=== PATIENT | female | born 1960 | race Caucasian/White ===

== ENCOUNTER → 2018-09-21 | Day surgery (SDC) | payer BC ==
[~2018-09-21] MED LIST: CALCIUM PO; FENTANYL CITRATE/PF 100MCG/2 ML INJ ONE; GLUCAGON FOR INJ 1 MG VIAL ONE; MIDAZOLAM HCL 2 MG/2 ML VIAL ONE; MULTIVITAMINS1 EAC7 PO; PROPOFOL IV EMULSION 10 MG/ML 50 ML VIAL ONE
--- OUTSIDE RECORDS SUMMARY | 2018-09-21 06:03 | XMS REPORT | Summary of Care ---
Author Author [facility] Organization [facility] Address Unknown Phone Unavailable Encounter HQ Encntr_alias(FIN) [id number] Date(s): 08/19/17 - 08/19/17 [facility] [address] [place] [address]- [phone] Discharge Disposition: Home or Self Care Attending Physician: Ashlie Everett MD Referring Physician: Ashlie Everett MD Vital Signs No data available for this section Problem List No data available for this section Allergies, Adverse Reactions, Alerts No data available for this section Medications No data available for this section Results No data available for this section Immunizations No data available for this section Procedures No data available for this section Social History No data available for this section Assessment and Plan No data available for this section
--- OUTSIDE RECORDS SUMMARY | 2018-09-21 06:03 | XMS REPORT | Continuity of Care Document ---
Author [facility] Organization [facility] [employer] Address Unknown Phone Unavailable Care Team Providers Care [facility] Attendant Name Role Phone [facility] Information [employer] Unavailable Unavailable Problems Problem Status Onset Date Classification Date Reported Comments Source ROUTINE Active 08/09/2017 [facility] NON- LAISON ON RIGHT FOOT Active 07/30/2015 [facility] S82.91XA Active 07/30/2015 [facility] Medications No Data Provided for This Section Allergies, Adverse Reactions, Alerts No Known Medication Allergies Immunizations No Data Provided for This Section Results No Data Provided for This Section Pathology Reports No Data Provided for This Section Diagnostic Reports Report Value Date Source Breast Mammo Scrn ALESSANDRA w bhavin incl CAD MA BILATERAL DIGITAL SCREENING MAMMOGRAM 3D/2D WITH CAD: 08/19/2017 CLINICAL: /Screen. Current study was evaluated with a Computer Aided Detection (CAD) system. COMPARISON:Comparison is made to exams dated: 11/04/2015 mammogram, 10/23/2014 mammogram, 07/12/2013 mammogram, 07/05/2012 mammogram, 04/15/2011 mammogram, and 09/23/2009 mammogram. TECHNIQUE: Digital Breast Tomosynthesis was performed and utilized for Interpretation. i[employer] Version 1.3 was utilized for computer aided detection. FINDINGS: There are scattered fibroglandular densities in both breasts. Benign appearing densities are noted in both breasts. There is a benign calcification in the right breast. No significant masses, calcifications, or other findings are seen in either breast. There has been no significant interval change. IMPRESSION: BENIGN RECOMMENDATION:There is no mammographic evidence of malignancy. A 1 year screening mammogram is recommended.(08/20/2018) This exam was interpreted at [id number] for [facility]. Tuyet mora/re:08/23/2017 07:58:21 Family Consumer Science Teacher(s): Polly Lerma, [facility] letter sent: BI-RADS 1/2 Mammogram BI-RADS: 2 Benign 08/19/2017 [facility] Foot wo contrast CT Study: CT scan of the right foot without contrast Clinical Indication: S82.91XA Unspecified fracture of right lower leg, initial encounter for closed fracture Comparison: None TECHNIQUE: Multiple axial CT images of the right foot were acquired without the administration of intravenous contrast. Multiplanar formatted images were performed. FVV=409 mGy-cm FINDINGS: Postoperative changes of arthrodesis and screw fixation across the 1st TMT articulation are seen, utilizing 2 fixation screws. There is severe joint space narrowing across the 1st TMT joint with partial osseous bridging. There are well-corticated 12 mm and 4 mm ossific fragments along the plantar base of the 1st metatarsal bone. No acute bony fracture, joint dislocation, or discrete osseous erosion is seen. The bones are diffusely demineralized. Os trigonum is incidentally noted. Moderate osteoarthrosis of the 1st MTP joint and metatarsosesamoid articulations is seen. Mild osteoarthrosis of the 2nd through 4th MTP joints are also noted. Mild edema along the dorsal soft tissues of the foot is seen. The musculature throughout the foot is normal in bulk. No extracapsular mass or hypodense fluid collection is seen. IMPRESSION: 1. Postoperative changes of arthrodesis and screw fixation across the 1st TMT joint with partial osseous fusion across the 1st TMT joint. 2. 12 mm and 4 mm well-corticated ossific fragments adjacent to the plantar base of the 1st metatarsal bone. 3. 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 SL: [id number] 08/06/2015 [facility] Consultation Notes No Data Provided for This Section Discharge Summaries No Data Provided for This Section History and Physicals No Data Provided for This Section Vital Signs No Data Provided for This Section Encounters Location Location Details Encounter Type Encounter Number Reason For Visit Attending Provider ADM Date DC Date Status Source [facility] Outpatient [id number] Lewis Pack 08/06/2015 08/07/[address] [facility] Outpatient [id number] Ashlie Everett 08/19/2017 08/20/2017 [facility] Procedures No Data Provided for This Section Assessment and Plan No Data Provided for This Section Plan of Care No Data Provided for This Section Social History Social History Date Source No data available for this section 08/20/2017 [facility] Family History No Data Provided for This Section Advance Directives No Data Provided for This Section Functional Status No Data Provided for This Section
--- OUTSIDE RECORDS SUMMARY | 2018-09-21 06:03 | XMS REPORT | Summary of Care ---
Author Author [facility] Organization [facility] Address Unknown Phone Unavailable Encounter HQ Encntr_alias(FIN) [id number] Date(s): 08/06/15 - 08/06/15 [facility] [address] [place] [address]- [phone] Discharge Disposition: Home Attending Physician: Lewis Pack DPM Referring Physician: Lewis Pack DPM Vital Signs No data available for this [...]
--- OUTSIDE RECORDS SUMMARY | 2018-09-21 06:03 | XMS REPORT | Summary of Care ---
Author Author [facility] Organization [facility] Address Unknown Phone Unavailable Encounter HQ Encntr_alias(FIN) [id number] Date(s): 08/01/15 - 08/01/15 [facility] [address] [place] [address]- Discharge Disposition: Home Attending Physician: Lewis Pack [...]
--- NOTE | 2018-09-21 07:15 | NUR ---
SPIRITUAL CARE - Pre-Surgery Assessment: Pt in bed. Pt's at bedside. Pt reported supportive attention from family and friends. Intervention: I provided pastoral presence, hospitality, and sympathetic listening. I acquainted pt with availability of asbestos siding mechanic while hospitalized. Outcome: Pt expressed appreciation for visit. No need for follow up indicated at this time. GEORGE Negronlain Spiritual Care Department O: [phone] Pager: [phone] ([phone] number calling from)
[2018-09-21 09:15] VITALS: BP 119/74
--- NOTE | 2018-09-21 10:54 | Operative Report ---
DATE OF PROCEDURE: 09/21/2018 SURGEON: Gregory Noble MD PROCEDURE: Colonoscopy and polypectomy. INDICATIONS FOR COLONOSCOPY: Surveillance colonoscopy, personal history of colon polyps. MEDICATIONS: The patient was done under MAC, please see anesthesiologist's note. PROCEDURE IN DETAIL: With the patient in left lateral decubitus position, the flexible fiberoptic Olympus colonoscope was inserted into the rectum with ease and advanced all the way to the cecum. A minute polyp was removed per the cold biopsy forceps from the cecum. Three minute polyps were removed from the ascending colon per the cold biopsy forceps. One polyp was hot biopsied in the transverse colon. One polyp was hot biopsied in the descending colon. Some diverticular disease was noted in the sigmoid colon. Two polyps were snared and one polyp was hot biopsied from the sigmoid colon. The rectum appeared to be within normal limits. The scope was then retroflexed into the distal rectum and small internal hemorrhoids were noted, none of which was actively bleeding. The scope was then straightened out, it was subsequently withdrawn. The patient tolerated procedure well. IMPRESSION: 1. Cecal polyp x1, removed per the cold biopsy forceps. 2. Ascending colon polyps x3, removed per the cold biopsy forceps. 3. Transverse colon polyp x1, hot biopsied. 4. Diverticulosis. 5. Descending colon polyp, hot biopsied. 6. Sigmoid colon polyps x3, two snared and one hot biopsied. 7. Internal hemorrhoids, none actively bleeding. PLAN: Follow up histology. Initiate high-fiber, low-fat diet. Initiate high-fiber supplement. The patient might benefit from a followup colonoscopy in 3 years. A total of nine polyps were removed. Gregory Noble MD [facility]/YANCYL /[id number] cc: Kenia Campos MD
== END | disposition home or self-care (01) ==
LOC: OR 06:00
PROVIDERS: ATTEND Internal Medicine Gastroenterology
DX: Z09 Encounter for follow-up examination after completed treatment for conditions other than malignant neoplasm (principal); D12.0 Benign neoplasm of cecum; D12.2 Benign neoplasm of ascending colon; D12.3 Benign neoplasm of transverse colon; D12.4 Benign neoplasm of descending colon; D12.5 Benign neoplasm of sigmoid colon; K57.30 Diverticulosis of large intestine without perforation or abscess without bleeding; K64.8 Other hemorrhoids; Z01.810 Encounter for preprocedural cardiovascular examination
CPT/HCPCS: 45380; 45384; 45385; 93005; J1610; J2250; J2704; 45378; J3010